=== PATIENT | female | born 1975 | race Caucasian/White ===

== ENCOUNTER 2019-07-17 16:37 | Emergency (ER) | payer MEDICAID, SELFPAY ==
[2019-07-17 16:39] VITALS: BP 194/88; PULSE 114; RESP 18; TEMP 37.8; O2SAT 98; BMI 41.3
[2019-07-17 17:51] VITALS: O2SAT 98
[2019-07-17 17:54] VITALS: PULSE 98; RESP 16; O2SAT 98
--- NOTE | 2019-07-17 18:57 | EKG12_ITS ---
Test Reason : Blood Pressure : / mmHG Vent. Rate : 090 BPM Atrial Rate : 090 BPM P-R Int : 158 ms QRS Dur : 084 ms QT Int : 376 ms P-R-T Axes : 036 004 045 degrees QTc Int : 459 ms Normal sinus rhythm Moderate voltage criteria for LVH, may be normal variant Borderline ECG Confirmed by MELONIE ZIEGLER ([id number]), science editor HOSSEIN ESCOBEDO ([id number]) on 07/20/2019 10:14:22 AM Referred By: ADITYA Confirmed By:MELONIE ZIEGLER
--- NOTE | 2019-07-17 19:08 | ED.RN ---
NO OLD EKGS IN MUSE
--- NOTE | 2019-07-17 19:15 | RAD_ITS ---
STUDY: X-RAY CHEST REASON FOR EXAM: Female, 44 years old. Cough. Chest pain. TECHNIQUE: Frontal and lateral views of the chest COMPARISON: None. FINDINGS: The lungs are clear. There are no pleural effusions. There is no pneumothorax. The heart is normal in size. The visualized osseous structures are within normal limits. RAD/Chest PA and Lateral IMPRESSION: No acute thoracic pathology. Electronically Signed: Derrick Hudson, at 19:26 EDT Tel , Service support ,
--- NOTE | 2019-07-17 19:15 | ED.VIS.GEN ---
History of Present Illness Chief Complaint: Cough Informant: Patient Onset: Weeks Context: Gradual Onset Timing: Waxes and wanes Current Severity: Severe Maximum Severity: Severe Narrative: Patient is a 44-year-old female with no significant past medical history presenting with right-sided rib pain and persistent cough. She states 1 month ago she was diagnosed with bronchitis at [facility]. She is placed on a Z-Romulo, Tessalon Perles and albuterol inhaler. She states a week and half later they did a chest x-ray when she was diagnosed with pneumonia. She is put on a second antibiotic and given more Tessalon Perles. Patient does not recall what antibiotic it was. She states since then she is continued to have a cough and is having significant right-sided chest pain whenever she coughs. She is not feeling short of breath because of the pain. Because of the persistence of the symptoms she was sent to the emergency room. Patient states she feels short of breath with her daily activities which is new. She denies any swelling of her lower extremities. She has a history of pulmonary embolus or DVT. She denies any fever dietary today. She denies any rash or skin changes. She denies any nausea, vomiting or diarrhea. Past Medical History - Allergies and Home Meds Allergies/Adverse Reactions: Allergies No Known Allergies Allergy (Verified 07/17/19 16:38) Primary Care Physician: Care Physician,No Primary [Primary Care Provider] - Surgical History: appendectomy, - - , right elbow surgery, left knee surgery Lives: Spouse/ Significant Other Smoking Status: Never smoker Review of Systems All systems negative except as indicated General: Reports: Malaise Cardiovascular: Reports: Chest pain - With coughing Respiratory: Reports: Dyspnea, Cough, Dyspnea on exertion Physical Exam Vital Signs/Narrative: Vital Signs Temp Pulse Resp BP Pulse Ox 07/17/19 17:54 98 16 98 07/17/19 16:39 100.1 F H 114 H 18 194/88 H 98 Inital Vital Signs reviewed: Yes General: Well nourished, Well developed, No Acute Distress Head: Normocephalic, Atraumatic Eyes: Perrl, EOMI ENT: Moist mucous membranes, No rhinorrhea Neck: Supple, Nontender Cardiovascular: Regular rate, Regular rhythm, No murmurs Respiratory: No distress, CTA bilaterally, Chest tenderness - Right posterior thoracic area Abdomen: Soft, Nontender, Nondistended, Normal bowel sounds Back: Nontender, Normal Inspection Extremities: Nontender, No edema Skin: Normal color, No rash Neurological: Alert, Oriented x3, Cranial nerves II-XII grossly intact, Normal Strength, Normal Sensation Psychological: Normal affect, Normal Mood Diagnostic/Tx/Re-eval Chest X-Ray - ED: 2 View Clinical Impression(s) from Imaging Studies Chest X-Ray 07/17/19 19:15 IMPRESSION: No acute thoracic pathology. Electronically Signed: Derrickrojas Hudson, at 19:26 EDT Tel , Service support , Chest CTA 07/17/19 20:07 IMPRESSION: No evidence of pulmonary embolus or other acute thoracic disease. Fatty liver. Electronically Signed: Derrick Hudson, at 20:56 EDT Tel , Service support , Laboratory Data 07/17/19 07/17/19 07/17/19 19:05 19:05 19:25 WBC 12.8 H RBC 4.60 Hgb 12.6 Hct 40.1 MCV 87.2 MCH 27.4 MCHC 31.4 L RDW Std Deviation 43.8 RDW Coeff of Deandra 13.6 Plt Count 422 MPV 8.8 Immature Gran % (Auto) 0.900 Neut % (Auto) 73.0 H Lymph % (Auto) 18.6 L Gillespie % (Auto) 5.0 Eos % (Auto) 1.9 Baso % (Auto) 0.6 Absolute Neuts (auto) 9.4 H Absolute Lymphs (auto) 2.39 Nucleated RBC % 0 Sodium 140 Potassium 4.1 Chloride 105 Carbon Dioxide 29.0 Anion Gap 6 BUN 14 Creatinine 1.03 H Estim Creat Clear Calc 101.25 Est GFR (MDRD) Af Amer 74 Est GFR (MDRD) Non-Af 62 BUN/Creatinine Ratio 13.6 Glucose 104 Calcium 8.6 Urine Color Urine Clarity Urine pH Ur Specific [place] Urine Protein Urine Glucose (UA) Urine Ketones Urine Occult Blood Urine Nitrite Urine Bilirubin Urine Urobilinogen Ur Leukocyte Esterase Urine RBC Urine WBC Ur Squamous Epith Cells Urine Bacteria Urine Mucus Urine Test Negative 07/17/19 19:25 WBC RBC Hgb Hct MCV MCH MCHC RDW Std Deviation RDW Coeff of Deandra Plt Count MPV Immature Gran % (Auto) Neut % (Auto) Lymph % (Auto) Gillespie % (Auto) Eos % (Auto) Baso % (Auto) Absolute Neuts (auto) Absolute Lymphs (auto) Nucleated RBC % Sodium Potassium Chloride Carbon Dioxide Anion Gap BUN Creatinine Estim Creat Clear Calc Est GFR (MDRD) Af Amer Est GFR (MDRD) Non-Af BUN/Creatinine Ratio Glucose Calcium Urine Color Yellow Urine Clarity Sl. Cloudy Urine pH 7.0 Ur Specific [place] 1.010 Urine Protein Negative Urine Glucose (UA) Normal Urine Ketones Negative Urine Occult Blood Negative Urine Nitrite Negative Urine Bilirubin Negative Urine Urobilinogen Normal Ur Leukocyte Esterase Negative Urine RBC 0 SEEN Urine WBC 0 SEEN Ur Squamous Epith Cells 0-5 SEEN Urine Bacteria 0 SEEN Urine Mucus 0 SEEN Urine Test - Rhythm Strip Rhythm Strip: Sinus Rhythm Rate: 90 Ectopy: None - EKG Initial EKG Interpretation: Sinus Rhythm, - - Normal sinus rhythm at a rate of 90 TX interval 158 QRS 84 QT/QTc 376/459 Left axis deviation Normal ST segments - Medical Decision Making Patient is evaluated for cough and significant right-sided chest pain. She is previously been on a course of antibiotics for pneumonia. She appears uncomfortable but no acute distress. Vital signs are significant for hypertension and tachycardia. Symptoms do improve with pain control and fluids. X-ray does not show any acute process and patient is not hypoxic. White blood cell count is only minimally elevated. Because of patient's significant pain and initial tachycardia, CTA is ordered to rule out PE as well as a more subtle infiltrate. This is a largely negative for any process. Patient likely has chest wall strain from her coughing or possibly pleurisy. She is counseled on deep breathing techniques and need for outpatient follow-up. She is given a short course of tramadol for pain. Patient is counseled on signs and symptoms requiring return to the emergency room. Patient verbalizes agreement and understand this plan. Patient discharged home in stable and improved condition. ED Disposition - Plan for ED Patient: Disposition: Home or Assisted Living Diagnosis: Chest wall pain Instructions: Pleurisy, Chest Wall Strain Prescriptions: traMADol [Ultram] 50 mg PO Q6H PRN PRN 3 Days #12 tab PRN Reason: Pain Score 6-10/10 Prescription Printed Referrals: Care Physician,No Primary [Primary Care Provider] - Additional Instructions: Follow-up with your primary care doctor later this week. It is important that you practice deep breathing exercises. It is important that you start moving around more. You do not have any signs of pneumonia or other acute infection at this time. Return to emergency room if you have worsening or changing symptoms.
[2019-07-17 19:30] VITALS: BP 155/99; PULSE 97; RESP 22; O2SAT 95
[2019-07-17 19:31] LABS: Bacteria 0 SEEN /hpf (None Seen); Mucous, Urine 0 SEEN /hpf (<or=2+); Red Blood Cells-Urine 0 SEEN /hpf (0-5); White Blood Cells 0 SEEN /hpf (0-5)
[2019-07-17 19:34] LABS: Absolute Lymphocyte Count 2.39 X10^3/uL (0.83-4.51); Absolute Neutrophil Count 9.4 X10^3/uL (2.0-7.7); Basophil# 0.08 X10^3/uL; Basophil% 0.6 % (0-1); Eosinophil# 0.25 X10^3/uL; Eosinophils% 1.9 % (0-5); Hematocrit 40.1 % (37-47); Hemoglobin 12.6 g/dL (12.0-15.0); Lymphocyte # 2.39 X10^3/ul (4.0); Lymphocyte % 18.6 % (19-41); Mean Corp Hgb Conc 31.4 g/dL (32-36); Mean Corpuscular Hgb 27.4 pg (27.0-32.0); Mean Corpuscular Volume 87.2 fL (81-99); Mean Platelet Vol. 8.8 fl (6.2-12.0); Monocyte# 0.64 X10^3/uL; NRBC Flagged by Analyzer 0 % (0-5); Neutrophil # 9.36 X10^3/uL (2.7-7.7); Platelet Count 422 K/mm3 (150-450); RBC Distribution Width CV 13.6 % (11.6-14.6); RBC Distribution Width SD 43.8 fl (35.1-43.9); White Blood Count 12.8 K/mm3 (4.4-11.0)
[2019-07-17 19:40] LABS: Color, Urine Yellow (Yellow); Glucose, Dipstick Normal (Normal); Ketone-Dipstick Negative (Negative); Leukocyte Esterase-Dipstick Negative /ul (Negative); Nitrite-Dipstick Negative (Negative); Occult Blood-Urine Negative /ul (Negative); Protein-Dipstick Negative (Negative); Urine Bilirubin Dipstick Negative (Negative); Urine Clarity Sl. Cloudy (Clear); Urine Urobilinogen Normal (Normal)
[2019-07-17 19:45] LABS: Squamous Epithelial Cells - UA 0-5 SEEN /hpf (5-10)
[2019-07-17] MEDS: Ketorolac 15 MG/ML Vial IV (19:45)
[2019-07-17] MEDS: Morphine 4 MG/ML Syringe IV (19:45)
[2019-07-17 19:47] LABS: Internal QC Validated? YES +Cl - CLEAR BKGD; Pregnancy, Urine Negative Negative
[2019-07-17 19:52] LABS: Anion Gap 6 (5-15); BUN 14 mg/dL (7-18); BUN/Creat Ratio 13.6 RATIO (10-20); Calcium,Total 8.6 mg/dL (8.5-10.1); Chloride 105 mmol/L (98-107); Creatinine, Serum 1.03 mg/dL (0.55-1.02); EST Glomerular Filtration Rate 62 mL/min (>60); Est Glom Filt Rate - Afr Amer 74 mL/min (>60); Estimated Creatinine Clearance 101.25 ml/min; Glucose 104 mg/dL (74-106); Potassium 4.1 mmol/L (3.5-5.1); Sodium Level 140 mmol/L (136-145)
--- NOTE | 2019-07-17 20:07 | CT_ITS ---
STUDY: CTA CHEST REASON FOR EXAM: Female, 44 years old. Chest pain after coughing. RADIATION DOSAGE (If Supplied By Facility): CTDIvol = ( 13.85 ) mGy, DLP = ( 471.39 ) mGycm TECHNIQUE: The examination was performed with the intravenous administration of IV 100mL [id number]-370 100ML. Post-processing of the angiographic images was performed, with multiplanar reformation and 3D reconstruction. Individualized dose optimization techniques were used for this CT. COMPARISON: None. FINDINGS: Normal enhancement of the main pulmonary artery and right and left pulmonary arteries. Normal enhancement of the bilateral peripheral pulmonary arteries. There is no demonstrated pulmonary embolism. Normal thoracic aorta and visualized great vessels. There is no demonstrated aortic dissection. Normal heart and pericardium. Normal mediastinum. Normal hilar regions. Normal visualized trachea and bronchi. The lungs are well expanded. Normal pulmonary parenchyma. Normal pleura. Normal chest wall structures. Normal osseous structures. There is diffuse fatty infiltration of the liver. CT/CTA Chest W/WO Contrast IMPRESSION: No evidence of pulmonary embolus or other acute thoracic disease. Fatty liver. Electronically Signed: Derrick Hudson, at 20:56 EDT Tel , Service support ,
[2019-07-17 21:00] VITALS: BP 114/67; PULSE 82; RESP 18; O2SAT 94
[2019-07-17 21:36] VITALS: BP 105/60; PULSE 80; RESP 16; O2SAT 95
--- NOTE | 2019-07-17 21:53 | ED.RN ---
REVIEWED D/C INSTRUCTIONS, FOLLOW UP CARE, PRESCRIPTION, AND S/S THAT WOULD WARRANT A RETURN TO THE ED WITH PT. PT VERBALIZED AN UNDERSTANDING AND DENIES FURTHER QUESTIONS FOR THIS RN. PT SKIN P/W/D, RESP EVEN AND UNLABORED, PT A&O X 3, NO DISTRESS NOTED.
== END 2019-07-17 21:55 | disposition home or self-care (01) ==
PROVIDERS: Emergency Provider Emergency Medicine
DX: R07.89 Other chest pain (principal); Z86.711 Personal history of pulmonary embolism
CPT/HCPCS: 71046; 71275; 80048; 81001; 81025; 85025; 93005; 96374; 96375; 99284; Q9967; A4216

== ENCOUNTER → 2019-07-25 | Outpatient (CLI) | payer MEDICAID, SELFPAY ==
[2019-07-25 11:03] VITALS: BMI 41.3
[2019-07-25 13:23] LABS: T4 Free Direct 0.88 ng/dL (0.76-1.46); Thyroid Stim Hormone (TSH) 5.06 uIU/mL (0.358-3.74)
[2019-07-30 12:46] LABS: HPV APTIMA, High Risk Positive (Negative)
== END | disposition home or self-care (01) ==
PROVIDERS: Referring Provider Nurse Practitioner Women's Health; Visit Provider Nurse Practitioner Women's Health
DX: R63.5 Abnormal weight gain (principal); N39.0 Urinary tract infection, site not specified; Z12.4 Encounter for screening for malignant neoplasm of cervix
CPT/HCPCS: 36415; 84439; 84443; 87086; 87624; 88175; G0145

== ENCOUNTER → 2019-07-30 14:02 | Outpatient (CLI) | payer MEDICAID, SELFPAY ==
[2019-07-25 11:03] VITALS: BMI 41.3
--- NOTE | 2019-07-30 14:05 | US_ITS ---
STUDY: ULTRASOUND OF THE FEMALE PELVIS - COMPLETE REASON FOR EXAM: Female, 44 years old. Pelvic pain LMP: July 09, 2019. TECHNIQUE: Transabdominal and Transvaginal TECHNICAL QUALITY: Adequate. COMPARISON: None. FINDINGS: The uterus is anteverted and is in a midline position. The uterus measures 8.3 x 5.0 x 3.7 cm. There is a Nabothian cyst of the cervix. The endometrium measures 5 mm in thickness, and is hyperechoic. There is no demonstrated endometrial mass. There is no demonstrated myometrial mass. I.U.D. - The patient does have an I.U.D. located in the endometrium The right ovary is visualized. The right ovary measures 2.8 x 2.1 x 1.6 cm. There is 1.5 cm cyst. There is no visualized right adnexal mass or complex lesion. There is normal arterial and normal venous vascularity. The left ovary is non-visualized. There is no fluid in the cul-de-sac. The pre void volume of the bladder was 42 ml. US/Transvaginal Non- IMPRESSION: Right adnexal follicle. IUD in the uterus. Electronically Signed: Sumeet Barrera MD at 21:53 EDT , Service support ,
--- NOTE | 2019-07-30 14:05 | US_ITS ---
STUDY: ULTRASOUND OF THE FEMALE PELVIS - COMPLETE REASON FOR EXAM: Female, 44 years old. Pelvic pain LMP: July 09, 2019. TECHNIQUE: Transabdominal and Transvaginal TECHNICAL QUALITY: Adequate. COMPARISON: None. FINDINGS: The uterus is anteverted and is in a midline position. The uterus measures 8.3 x 5.0 x 3.7 cm. There is a Nabothian cyst of the cervix. The endometrium measures 5 mm in thickness, and is hyperechoic. There is no demonstrated endometrial mass. There is no demonstrated myometrial mass. I.U.D. - The patient does have an I.U.D. located in the endometrium The right ovary is visualized. The right ovary measures 2.8 x 2.1 x 1.6 cm. There is 1.5 cm cyst. There is no visualized right adnexal mass or complex lesion. There is normal arterial and normal venous vascularity. The left ovary is non-visualized. There is no fluid in the cul-de-sac. The pre void volume of the bladder was 42 ml. US/Pelvic (Non ) IMPRESSION: Right adnexal follicle. IUD in the uterus. Electronically Signed: Sumeet Barrera MD at 21:53 EDT , Service support ,
== END ==
PROVIDERS: Referring Provider Nurse Practitioner Women's Health; Visit Provider Nurse Practitioner Women's Health
DX: R10.2 Pelvic and perineal pain (principal)
CPT/HCPCS: 76830; 76856

== ENCOUNTER 2019-09-11 12:51 | Observation (INO) | payer MEDICAID, SELFPAY ==
[2019-08-01 09:22] VITALS: BMI 46.2
[2019-09-11] VITALS (8 sets, daily range): BP systolic 132–167; BP diastolic 59–111; PULSE 76–94; RESP 15–20; TEMP 36.3–37; O2SAT 94–100; BMI 46.4; BMI 48.0
[2019-09-11 11:51] LABS: Internal QC Validated? YES +Cl - CLEAR BKGD; Pregnancy, Urine Negative Negative
[2019-09-11] MEDS: Lactated Ringers 1,000 ML 100 ML IV (12:30)
--- NOTE | 2019-09-11 12:48 | OP.PCM_ITS ---
Problem List (1) Rectocele Status: Acute (2) Stress incontinence Status: Acute Report of Operation Date of Procedure: 09/11/19 Pre-Operative Diagnosis: rectocele and stress urinary incontinence Post-Operative Diagnosis: same Surgery/Procedure Performed:: posterior repair, midurethral sling insertion, cystoscopy Type of Anesthesia:: General Estimated Blood Loss (mL): 35CC Description of Procedure: The patient is a 44-year-old female who presented to the office with complaints of stress urinary incontinence and on exam was found to have a rectocele. After discussing the risks benefits and alternatives, undergoing urodynamics and cystoscopy, informed consent was obtained for surgical intervention. The patient was taken to the operating room and placed on the operating room table. Anesthesia monitored the head, neck, airway, IV access and vital signs throughout the case. Once anesthesia was appropriately administered the patient was placed into dorsal lithotomy position was prepped and draped in usual sterile fashion. A 16 Vietnamese Arana catheter was inserted and the bladder was dr ained. The posterior vaginal wall was injected submucosally with 1% lidocaine with epinephrine in a 1-100,000 ratio. A midline incision was made followed by blunt and mostly sharp dissection in order to identify the rectovaginal fascia. This was brought together in a 2 layer repair with interrupted 2-0 Vicryl. The perineal body was also brought together and reinforced. The vaginal mucosa was closed using running interlocking 2-0 Vicryl. The mid urethra was identified and injected submucosally with 1% lidocaine with epinephrine. A midline vertical incision was made approximately 1.2 cm in length. Sharp and then blunt dissection was performed on either side of the urethra. The trochars were then used to pass the Altis mid urethral sling into the obturator complexes bilaterally with care being taken to avoid entry into the urethra or the vagina. The sling lay flat against the urethra and the incision was closed using running interlocking 2-0 Vicryl. A cystourethroscopy was then performed revealing no foreign body within the urinary bladder including stitch or mesh. There were no mucosal abnormalities identified. Bilateral ureteral jets were observed. The vagina was then packed with estrogen cream and the patient's catheter was replaced. She was awakened and taken to the recovery room in good condition. Grafts/Implants Used: Altis midurethral sling - Complications none - Admit VTE Documentation VTE Present on Admission: Yes VTE Mechan Device Prophylaxis: SCD's VTE Pharm Prophylaxis ordered?: Yes
--- NOTE | 2019-09-11 12:56 | DCINST_ITS ---
Discharge Diet: No Restrictions Discharge Activity: May Not Drive - for 2 weeks, May Shower Call your doctor if your incision/area has: Continuous Slow Oozing, Sudden Increased Bleeding, Foul Smelling Discharge Call your doctor if you observe: Fever of 101 or Higher, Inability to urinate, Inability to have a bowel movement, Calf discomfort, Uncontrolled pain Allergies/Adverse Reactions: Allergies No Known Allergies Allergy (Verified 09/11/19 12:14) Medications to take at Discharge levonorgestrel 20 mcg/24 hours (5 yrs) 52 mg intrauterine device 1 device INTRAUTERINE ONCE 07/25/19 levothyroxine 25 mcg tablet 25 mcg PO DAILY #60 tab 08/01/19 Cephalexin [Keflex] 500 mg PO Q12 3 Days #6 cap 09/11/19 Oxycodone HCl/Acetaminophen [Percocet 5/325] 2 tab PO Q8H PRN PRN 7 Days #20 tab 09/11/19 The following prescriptions were given: Cephalexin [Keflex] 500 mg PO Q12 3 Days #6 cap Prescription Printed Oxycodone HCl/Acetaminophen [Percocet 5/325] 2 tab PO Q8H PRN PRN 7 Days #20 tab PRN Reason: Pain Prescription Printed Primary Care Physician: Anabela Calderon MD [Primary Care Provider] - Test Results: Test results from this visit will be discussed in further detail at your follow- up appointment, if applicable. Please Follow Up With: Italia Cheng MD When: call office for appt Proposed Discharge Date: 09/12/19
[2019-09-11] MEDS: Cefazolin 2 GM in 0.9% Normal Saline 100 ML IV (13:10)
[2019-09-11] MEDS: Lubricating Jelly 60 GM Tube 30 GM TOPICAL (13:30)
[2019-09-11] MEDS: Estrogens,Conj. 1 Tube 1 DOSE (14:37)
[2019-09-11] MEDS: HYDROcodone Bitartrate/Apap 5/325 Tablet PO (16:01)
[2019-09-11] MEDS: Morphine 2 MG/ML Syringe IV ×3 (16:29→22:32)
[2019-09-11] MEDS: Dextrose 5%-Lactated Ringers 1,000 ML 100 ML IV (16:32)
[2019-09-11] MEDS: 0.9% Saline Lock 10 ML Syringe IV (19:38)
[2019-09-11] MEDS: Cefazolin 1 GM/50 ML BAG IV (20:41)
[2019-09-11] MEDS: Docusate Sodium 100 MG Capsule 200 MG PO (20:41)
[2019-09-12 01:31] VITALS: BP 135/65; PULSE 77; RESP 16; TEMP 36.8; O2SAT 94
[2019-09-12] MEDS: Dextrose 5%-Lactated Ringers 1,000 ML 100 ML IV (01:37)
[2019-09-12] MEDS: Morphine 2 MG/ML Syringe IV ×2 (02:21→11:20)
[2019-09-12] MEDS: Cefazolin 1 GM/50 ML BAG IV (05:12)
[2019-09-12] MEDS: Levothyroxine 25 MCG TABLET PO (05:14)
[2019-09-12] MEDS: Enoxaparin 40 MG/0.4 ML Syringe SC (05:14)
[2019-09-12] MEDS: HYDROcodone Bitartrate/Apap 5/325 Tablet PO ×2 (05:49→15:49)
--- NOTE | 2019-09-12 08:21 | PCM.PN.BLA ---
Progress Note Patient is up in bed eating. Complaining of left hip discomfort. Did get out of bed last night. Eating and tolerating oral intake without difficulty. No nausea or vomiting. Afebrile vital signs are stable Been soft nontender nondistended Urine clear in the Arana catheter Fully catheter and vaginal packing removed without difficulty Assessment and plan postop day #1 from rectocele repair and mid urethral sling insertion, cystoscopy Trial of void today Home today
[2019-09-12 09:20] VITALS: BP 124/60; PULSE 82; RESP 16; TEMP 36.9; O2SAT 97
[2019-09-12] MEDS: Docusate Sodium 100 MG Capsule 200 MG PO (09:20)
[2019-09-12] MEDS: 0.9% Saline Lock 10 ML Syringe IV ×3 (10:55→12:56)
[2019-09-12] MEDS: Ketorolac 30 MG/ML Syringe IM (12:56)
[2019-09-12 13:02] VITALS: BP 148/80; PULSE 71; RESP 16; TEMP 36.9; O2SAT 98
[2019-09-12 15:50] VITALS: BP 152/78; PULSE 76; RESP 18; TEMP 36.8; O2SAT 98
== END 2019-09-12 16:15 | disposition home or self-care (01) ==
LOC: MS2 09-12 07:20
PROVIDERS: Anesthesiology; Admitting Provider Urology; Family Provider Internal Medicine; PCP Internal Medicine; Referring Provider Urology; Visit Provider Urology
PROC: (CPT 57260; principal; 2019-09-11 12:50)
DX: N81.6 Rectocele (principal); N39.3 Stress incontinence (female) (male); E07.9 Disorder of thyroid, unspecified; Z79.899 Other long term (current) drug therapy
CPT/HCPCS: 57250; 57288; 81025; 96361; 96365; 96366; 96372; 96375; 96376; 97802; 99218; 99251; J7120; A4216; G0378; G0379; G0463; J2405